=== PATIENT | female | born 1970 | race Two or more races ===

== ENCOUNTER 2017-07-05 22:10 | Inpatient (IN) | payer OTHER ==
[2017-07-05 22:34] LABS: ADD MAN DIFF? NO
[2017-07-05 22:36] LABS: WHITE BLOOD COUNT 10.7 10^3/ul (4.8-10.8)
[2017-07-05 22:36] LABS: BASOPHILS % 0.3 % (0.0-2.0); EOSINOPHILS # 0.2 10^3/ul (0.0-0.5); EOSINOPHILS % 1.7 % (0.0-7.0); HEMATOCRIT 43.7 % (37.0-47.0); HEMOGLOBIN 14.6 g/dl (12.0-16.0); LYMPHOCYTES # 3.8 10^3/ul (0.8-2.9); LYMPHOCYTES % 35.7 % (15.0-51.0); MEAN CORPUSCULAR HEMOGLOBIN 28.7 pg (29.0-33.0); MEAN CORPUSCULAR HGB CONC 33.4 g/dl (32.0-37.0); MEAN CORPUSCULAR VOLUME 85.9 fl (82.0-101.0); MEAN PLATELET VOLUME 9.8 fl (7.4-10.4); MONOCYTE # 0.4 10^3/ul (0.3-0.9); MONOCYTES % 4.1 % (0.0-11.0); NEUTROPHIL # 6.2 10^3/ul (1.6-7.5); NEUTROPHILS % 57.9 % (39.0-77.0); PLATELET COUNT 312 10^3/UL (140-415); RED BLOOD COUNT 5.09 10^6/ul (4.20-5.40); RED CELL DISTRIBUTION WIDTH 13.7 % (11.5-14.5)
[2017-07-05 22:48] LABS: HEMOGLOBIN A1C 5.8 % (0-5.9)
[2017-07-05 22:54] LABS: INR 0.92; PROTIME 12.4 Sec (11.9-14.9)
[2017-07-05 22:55] LABS: PARTIAL THROMBOPLASTIN TIME 31.8 Sec (25.0-35.0)
[2017-07-05 22:58] LABS: ALANINE AMINOTRANSFERASE 33 IU/L (13-69); ALBUMIN 4.6 g/dl (3.3-4.9); ALBUMIN/GLOBULIN RATIO 1.17; ALKALINE PHOSPHATASE 73 IU/L (42-121); ANION GAP 16 (8-16); ASPARTATE AMINO TRANSFERASE 26 IU/L (15-46); BILIRUBIN,INDIRECT 0.2 mg/dl (0-1.1); BILIRUBIN,TOTAL 0.2 mg/dl (0.2-1.3); BLOOD UREA NITROGEN 13 mg/dl (7-20); CALCIUM 9.5 mg/dl (8.4-10.2); CARBON DIOXIDE 29 mmol/L (21-31); CHLORIDE 103 mmol/L (97-110); CREATININE 1.09 mg/dl (0.44-1.00); GLUCOSE 129 mg/dl (70-220); POTASSIUM 3.6 mmol/L (3.5-5.1); SODIUM 144 mmol/L (135-144); TOTAL PROTEIN 8.5 g/dl (6.1-8.1)
[2017-07-05 23:10] LABS: TROPONIN-I < 0.012 ng/ml (0.00-0.12)
[2017-07-05] MEDS: LABETALOL HCL 20MG INJ IV (23:33)
[2017-07-06] MEDS ORDERED: NACL 0.9% 3 ML SYG IV (04:30)
[2017-07-06] MEDS ORDERED: ALBUTEROL/IPRATROPIUM (NEB) 3 ML AMP HHN (04:30)
[2017-07-06] MEDS ORDERED: DILTIAZEM-D5W 125MG/125ML DRIP 125 ML IV (04:30)
[2017-07-06 04:59] LABS: ADD MAN DIFF? NO; BASOPHIL # 0.1 10^3/ul (0.0-0.1); BASOPHILS % 0.5 % (0.0-2.0); EOSINOPHILS # 0.2 10^3/ul (0.0-0.5); EOSINOPHILS % 1.9 % (0.0-7.0); HEMATOCRIT 39.4 % (37.0-47.0); HEMOGLOBIN 13.4 g/dl (12.0-16.0); LYMPHOCYTES # 3.1 10^3/ul (0.8-2.9); LYMPHOCYTES % 29.2 % (15.0-51.0); MEAN CORPUSCULAR HEMOGLOBIN 28.9 pg (29.0-33.0); MEAN CORPUSCULAR VOLUME 84.9 fl (82.0-101.0); MEAN PLATELET VOLUME 10.2 fl (7.4-10.4); MONOCYTE # 0.5 10^3/ul (0.3-0.9); MONOCYTES % 4.5 % (0.0-11.0); NEUTROPHIL # 6.9 10^3/ul (1.6-7.5); NEUTROPHILS % 63.7 % (39.0-77.0); PLATELET COUNT 309 10^3/UL (140-415); RED BLOOD COUNT 4.64 10^6/ul (4.20-5.40)
[2017-07-06 04:59] LABS: WHITE BLOOD COUNT 10.8 10^3/ul (4.8-10.8)
[2017-07-06 05:20] LABS: ALANINE AMINOTRANSFERASE 28 IU/L (13-69); ALBUMIN 4.2 g/dl (3.3-4.9); ALBUMIN/GLOBULIN RATIO 1.02; ALKALINE PHOSPHATASE 55 IU/L (42-121); ANION GAP 15 (8-16); ASPARTATE AMINO TRANSFERASE 31 IU/L (15-46); BILIRUBIN,INDIRECT 0.3 mg/dl (0-1.1); BILIRUBIN,TOTAL 0.3 mg/dl (0.2-1.3); BLOOD UREA NITROGEN 12 mg/dl (7-20); CALCIUM 9.2 mg/dl (8.4-10.2); CARBON DIOXIDE 28 mmol/L (21-31); CHLORIDE 103 mmol/L (97-110); CHOL/HDL RATIO 5.1 RATIO; CHOLESTEROL 171 mg/dl (100-200); CREATININE 0.94 mg/dl (0.44-1.00); GLUCOSE 120 mg/dl (70-220); HDL CHOLESTEROL 33 mg/dl (34-88); LDL CHOLESTEROL,CALCULATED 88 mg/dl; MAGNESIUM 1.9 mg/dl (1.7-2.5); POTASSIUM 3.5 mmol/L (3.5-5.1); SODIUM 142 mmol/L (135-144); TOTAL PROTEIN 8.3 g/dl (6.1-8.1); TRIGLYCERIDES 250 mg/dl (0-149)
[2017-07-06] MEDS: hydrALAzine 20 MG INJ IV ×3 (06:13→20:08)
[2017-07-06 08:36] LABS: CREATINE KINASE 200 IU/L (23-200)
[2017-07-06 08:50] LABS: CK INDEX 0.5; CK-MB 1.08 ng/ml (0.0-2.4); TROPONIN-I 0.012 ng/ml (0.00-0.12)
[2017-07-06] MEDS: FERROUS SULFATE (EC) 325 MG TAB PO (09:00)
[2017-07-06] MEDS: ASPIRIN 81 MG TAB PO (09:16)
[2017-07-06] MEDS: HYDROCHLOROTHIAZIDE 25 MG TAB PO (09:16)
[2017-07-06 09:49] LABS: HEMOGLOBIN A1C 5.7 % (0-5.9)
[2017-07-06] MEDS: ACETAMINOPHEN 325 MG TAB PO (09:51)
[2017-07-06] MEDS: ONDANSETRON 4 MG INJ IV ×2 (10:56→20:04)
[2017-07-06 11:38] LABS: CREATINE KINASE 204 IU/L (23-200)
[2017-07-06 11:50] LABS: CK INDEX 0.5; CK-MB 0.92 ng/ml (0.0-2.4)
[2017-07-06 11:53] LABS: TROPONIN-I < 0.012 ng/ml (0.00-0.12)
[2017-07-06] MEDS: LOSARTAN 50 MG TAB PO (12:33)
[2017-07-06] MEDS: ATORVASTATIN 10 MG TAB PO (21:30)
[2017-07-06] MEDS: morphine 2 MG INJ IV (22:03)
[2017-07-06] MEDS ORDERED: hydrALAzine 20 MG INJ IV (22:30)
[2017-07-06] MEDS: METOCLOPRAMIDE 10 MG INJ IV (22:52)
[2017-07-07] MEDS ORDERED: METOCLOPRAMIDE 10 MG INJ IV
[2017-07-07 07:28] LABS: ADD MAN DIFF? NO
[2017-07-07 07:33] LABS: BASOPHILS % 0.2 % (0.0-2.0); EOSINOPHILS % 0.1 % (0.0-7.0); HEMATOCRIT 42.8 % (37.0-47.0); HEMOGLOBIN 14.8 g/dl (12.0-16.0); LYMPHOCYTES # 3.1 10^3/ul (0.8-2.9); LYMPHOCYTES % 16.5 % (15.0-51.0); MEAN CORPUSCULAR HGB CONC 34.6 g/dl (32.0-37.0); MEAN CORPUSCULAR VOLUME 83.8 fl (82.0-101.0); MONOCYTE # 0.8 10^3/ul (0.3-0.9); MONOCYTES % 4.4 % (0.0-11.0); NEUTROPHIL # 14.8 10^3/ul (1.6-7.5); NEUTROPHILS % 78.2 % (39.0-77.0); PLATELET COUNT 399 10^3/UL (140-415); RED BLOOD COUNT 5.11 10^6/ul (4.20-5.40); RED CELL DISTRIBUTION WIDTH 14.2 % (11.5-14.5)
[2017-07-07 07:33] LABS: WHITE BLOOD COUNT 18.9 10^3/ul (4.8-10.8)
[2017-07-07] MEDS: FERROUS SULFATE (EC) 325 MG TAB PO (09:00)
[2017-07-07 10:26] LABS: ANION GAP 17 (8-16); BLOOD UREA NITROGEN 19 mg/dl (7-20); CALCIUM 10.1 mg/dl (8.4-10.2); CARBON DIOXIDE 29 mmol/L (21-31); CHLORIDE 97 mmol/L (97-110); CREATININE 1.68 mg/dl (0.44-1.00); GLUCOSE 140 mg/dl (70-220); PHOSPHORUS 4.6 mg/dl (2.5-4.9); SODIUM 140 mmol/L (135-144)
[2017-07-07] MEDS: LOSARTAN 50 MG TAB PO (10:29)
[2017-07-07] MEDS: HYDROCHLOROTHIAZIDE 25 MG TAB PO (10:29)
[2017-07-07] MEDS: ASPIRIN 81 MG TAB PO (10:29)
[2017-07-07] MEDS: METOCLOPRAMIDE 10 MG INJ IV ×3 (10:31→20:22)
[2017-07-07] MEDS: ENOXAPARIN 40 MG/0.4 ML SYG SC (10:37)
[2017-07-07 10:40] LABS: POTASSIUM 2.9 mmol/L (3.5-5.1)
[2017-07-07] MEDS: morphine 2 MG INJ IV (10:42)
[2017-07-07 12:30] LABS: ADD MAN DIFF? NO
[2017-07-07 12:38] LABS: BASOPHILS % 0.1 % (0.0-2.0); EOSINOPHILS % 0.1 % (0.0-7.0); HEMATOCRIT 43.3 % (37.0-47.0); HEMOGLOBIN 14.7 g/dl (12.0-16.0); LYMPHOCYTES # 2.2 10^3/ul (0.8-2.9); LYMPHOCYTES % 13.7 % (15.0-51.0); MEAN CORPUSCULAR HEMOGLOBIN 28.4 pg (29.0-33.0); MEAN CORPUSCULAR HGB CONC 33.9 g/dl (32.0-37.0); MEAN CORPUSCULAR VOLUME 83.6 fl (82.0-101.0); MEAN PLATELET VOLUME 9.9 fl (7.4-10.4); MONOCYTE # 0.8 10^3/ul (0.3-0.9); MONOCYTES % 4.9 % (0.0-11.0); NEUTROPHIL # 12.9 10^3/ul (1.6-7.5); NEUTROPHILS % 80.8 % (39.0-77.0); PLATELET COUNT 361 10^3/UL (140-415); RED BLOOD COUNT 5.18 10^6/ul (4.20-5.40); RED CELL DISTRIBUTION WIDTH 14.1 % (11.5-14.5)
[2017-07-07] MEDS: POTASSIUM CHLORIDE (SR) 20 MEQ TAB PO ×2 (13:58→17:35)
[2017-07-07] MEDS: ATORVASTATIN 10 MG TAB PO (20:22)
[2017-07-07] MEDS: HYDROCODONE/APAP (10/325) TAB PO (20:24)
[2017-07-08] MEDS: FERROUS SULFATE (EC) 325 MG TAB PO (09:02)
[2017-07-08] MEDS: ASPIRIN 81 MG TAB PO (09:02)
[2017-07-08] MEDS: HYDROCHLOROTHIAZIDE 25 MG TAB PO (09:03)
[2017-07-08] MEDS: LOSARTAN 50 MG TAB PO (09:03)
[2017-07-08] MEDS: ENOXAPARIN 40 MG/0.4 ML SYG SC (09:04)
[2017-07-08 09:18] LABS: ADD MAN DIFF? NO
[2017-07-08 09:20] LABS: BASOPHIL # 0.1 10^3/ul (0.0-0.1); BASOPHILS % 0.4 % (0.0-2.0); EOSINOPHILS # 0.1 10^3/ul (0.0-0.5); EOSINOPHILS % 0.5 % (0.0-7.0); HEMATOCRIT 43.3 % (37.0-47.0); HEMOGLOBIN 14.5 g/dl (12.0-16.0); LYMPHOCYTES # 3.5 10^3/ul (0.8-2.9); MEAN CORPUSCULAR HEMOGLOBIN 28.6 pg (29.0-33.0); MEAN CORPUSCULAR HGB CONC 33.5 g/dl (32.0-37.0); MEAN CORPUSCULAR VOLUME 85.4 fl (82.0-101.0); MONOCYTE # 0.8 10^3/ul (0.3-0.9); MONOCYTES % 5.8 % (0.0-11.0); NEUTROPHIL # 8.5 10^3/ul (1.6-7.5); PLATELET COUNT 381 10^3/UL (140-415); RED BLOOD COUNT 5.07 10^6/ul (4.20-5.40); RED CELL DISTRIBUTION WIDTH 14.4 % (11.5-14.5)
[2017-07-08 09:20] LABS: WHITE BLOOD COUNT 12.9 10^3/ul (4.8-10.8)
[2017-07-08] MEDS: ACETAMINOPHEN 325 MG TAB PO ×2 (09:34→17:34)
[2017-07-08 09:51] LABS: ANION GAP 15 (8-16); BLOOD UREA NITROGEN 30 mg/dl (7-20); CALCIUM 9.7 mg/dl (8.4-10.2); CARBON DIOXIDE 25 mmol/L (21-31); CHLORIDE 100 mmol/L (97-110); CREATININE 1.74 mg/dl (0.44-1.00); GLUCOSE 123 mg/dl (70-220); POTASSIUM 3.4 mmol/L (3.5-5.1); SODIUM 137 mmol/L (135-144)
[2017-07-08] MEDS: SOD CHLORIDE 0.9% 1,000 ML IV (17:53)
[2017-07-08] MEDS: ATORVASTATIN 10 MG TAB PO (20:34)
[2017-07-08 20:54] LABS: POTASSIUM 3.4 mmol/L (3.5-5.1)
[2017-07-08] MEDS: POTASSIUM CHLORIDE (SR) 20 MEQ TAB PO (21:57)
[2017-07-08 23:07] LABS: ADD UMIC NO; UR ASCORBIC ACID NEGATIVE (NEGATIVE); UR BILIRUBIN (Dip) NEGATIVE (NEGATIVE); UR BLOOD (Dip) NEGATIVE (NEGATIVE); UR CLARITY CLEAR (CLEAR); UR COLOR STRAW (YELLOW); UR GLUCOSE (Dip) NEGATIVE (NEGATIVE); UR KETONES (Dip) NEGATIVE (NEGATIVE); UR LEUKOCYTE ESTERASE (Dip) NEGATIVE Leu/ul (NEGATIVE); UR NITRITE (Dip) NEGATIVE (NEGATIVE); UR SPECIFIC GRAVITY (Dip) 1.009 (1.003-1.030); UR TOTAL PROTEIN (Dip) NEGATIVE (NEGATIVE); UR UROBILINOGEN (Dip) NEGATIVE (NEGATIVE)
[2017-07-08 23:31] LABS: CREATININE,URINE RANDOM 55.06 mg/dl (20-320); CREATININE,URINE RANDOM 55.21 mg/dl (20-320)
[2017-07-08 23:31] LABS: SODIUM,URINE RANDOM 42 mmol/L (30-90)
[2017-07-09] MEDS: ACETAMINOPHEN 325 MG TAB PO (04:49)
[2017-07-09 08:38] LABS: ADD MAN DIFF? NO
[2017-07-09 08:57] LABS: ANION GAP 14 (8-16); BLOOD UREA NITROGEN 20 mg/dl (7-20); CALCIUM 9.3 mg/dl (8.4-10.2); CARBON DIOXIDE 28 mmol/L (21-31); CHLORIDE 102 mmol/L (97-110); CREATININE 1.11 mg/dl (0.44-1.00); GLUCOSE 113 mg/dl (70-220); MAGNESIUM 2.1 mg/dl (1.7-2.5); POTASSIUM 3.1 mmol/L (3.5-5.1); SODIUM 141 mmol/L (135-144)
[2017-07-09] MEDS: ASPIRIN 81 MG TAB PO ×2 (09:00→11:20)
[2017-07-09] MEDS: FERROUS SULFATE (EC) 325 MG TAB PO ×2 (09:00→11:20)
[2017-07-09 09:04] LABS: BASOPHIL # 0.1 10^3/ul (0.0-0.1); BASOPHILS % 0.5 % (0.0-2.0); EOSINOPHILS # 0.1 10^3/ul (0.0-0.5); EOSINOPHILS % 1.3 % (0.0-7.0); HEMATOCRIT 41.5 % (37.0-47.0); HEMOGLOBIN 14.1 g/dl (12.0-16.0); LYMPHOCYTES # 3.3 10^3/ul (0.8-2.9); MEAN CORPUSCULAR VOLUME 85.2 fl (82.0-101.0); MEAN PLATELET VOLUME 9.8 fl (7.4-10.4); MONOCYTE # 0.7 10^3/ul (0.3-0.9); MONOCYTES % 6.2 % (0.0-11.0); NEUTROPHIL # 6.2 10^3/ul (1.6-7.5); NEUTROPHILS % 59.7 % (39.0-77.0); PLATELET COUNT 306 10^3/UL (140-415); RED BLOOD COUNT 4.87 10^6/ul (4.20-5.40); RED CELL DISTRIBUTION WIDTH 13.7 % (11.5-14.5)
[2017-07-09 09:04] LABS: WHITE BLOOD COUNT 10.5 10^3/ul (4.8-10.8)
[2017-07-09] MEDS: POTASSIUM CHLORIDE (SR) 20 MEQ TAB PO ×3 (11:13→15:23)
[2017-07-09] MEDS: ENOXAPARIN 40 MG/0.4 ML SYG SC (11:19)
[2017-07-09] MEDS: SOD CHLORIDE 0.9% 1,000 ML IV ×2 (13:30→17:32)
[2017-07-09 13:59] LABS: POTASSIUM,URINE RANDOM 33.9 mmol/L (25-125)
[2017-07-09 14:00] LABS: SODIUM,URINE RANDOM 105 mmol/L (30-90)
[2017-07-09] MEDS: ATORVASTATIN 10 MG TAB PO (20:59)
[2017-07-09 21:22] LABS: ALDOSTERONE 5 ng/dL
[2017-07-10] MEDS: ACETAMINOPHEN 325 MG TAB PO ×2 (04:03→20:59)
[2017-07-10] MEDS: FERROUS SULFATE (EC) 325 MG TAB PO (08:20)
[2017-07-10] MEDS: ASPIRIN 81 MG TAB PO (08:20)
[2017-07-10] MEDS: ENOXAPARIN 40 MG/0.4 ML SYG SC (08:21)
[2017-07-10] MEDS: VALSARTAN 160 MG TAB PO (08:24)
[2017-07-10] MEDS: HYDROCHLOROTHIAZIDE 12.5 MG CAP PO (08:25)
[2017-07-10 09:06] LABS: ADD MAN DIFF? NO
[2017-07-10 09:10] LABS: WHITE BLOOD COUNT 8.8 10^3/ul (4.8-10.8)
[2017-07-10 09:10] LABS: BASOPHILS % 0.5 % (0.0-2.0); EOSINOPHILS # 0.2 10^3/ul (0.0-0.5); EOSINOPHILS % 1.9 % (0.0-7.0); HEMATOCRIT 37.8 % (37.0-47.0); HEMOGLOBIN 12.9 g/dl (12.0-16.0); LYMPHOCYTES # 2.5 10^3/ul (0.8-2.9); LYMPHOCYTES % 28.5 % (15.0-51.0); MEAN CORPUSCULAR HEMOGLOBIN 29.6 pg (29.0-33.0); MEAN CORPUSCULAR HGB CONC 34.1 g/dl (32.0-37.0); MEAN CORPUSCULAR VOLUME 86.7 fl (82.0-101.0); MEAN PLATELET VOLUME 9.9 fl (7.4-10.4); MONOCYTE # 0.5 10^3/ul (0.3-0.9); MONOCYTES % 5.7 % (0.0-11.0); NEUTROPHIL # 5.6 10^3/ul (1.6-7.5); NEUTROPHILS % 62.9 % (39.0-77.0); PLATELET COUNT 267 10^3/UL (140-415); RED BLOOD COUNT 4.36 10^6/ul (4.20-5.40); RED CELL DISTRIBUTION WIDTH 13.7 % (11.5-14.5)
[2017-07-10] MEDS: SPIRONOLACTONE 25 MG TAB PO (09:23)
[2017-07-10] MEDS ORDERED: POTASSIUM CHLORIDE (SR) 20 MEQ TAB PO (09:30)
[2017-07-10 09:45] LABS: ANION GAP 15 (8-16); BLOOD UREA NITROGEN 16 mg/dl (7-20); CARBON DIOXIDE 26 mmol/L (21-31); CHLORIDE 107 mmol/L (97-110); CREATININE 0.98 mg/dl (0.44-1.00); GLUCOSE 112 mg/dl (70-220); PHOSPHORUS 3.4 mg/dl (2.5-4.9); POTASSIUM 3.7 mmol/L (3.5-5.1); SODIUM 144 mmol/L (135-144)
[2017-07-10 10:05] LABS: MAGNESIUM 2.1 mg/dl (1.7-2.5)
[2017-07-10] MEDS: ATORVASTATIN 10 MG TAB PO (20:54)
[2017-07-11] MEDS: SPIRONOLACTONE 25 MG TAB PO (05:31)
[2017-07-11] MEDS: HYDROCHLOROTHIAZIDE 12.5 MG CAP PO (05:32)
[2017-07-11 06:19] LABS: ADD MAN DIFF? NO
[2017-07-11 06:29] LABS: BASOPHILS % 0.4 % (0.0-2.0); EOSINOPHILS # 0.2 10^3/ul (0.0-0.5); EOSINOPHILS % 2.5 % (0.0-7.0); HEMATOCRIT 36.8 % (37.0-47.0); HEMOGLOBIN 12.2 g/dl (12.0-16.0); LYMPHOCYTES # 2.7 10^3/ul (0.8-2.9); LYMPHOCYTES % 35.5 % (15.0-51.0); MEAN CORPUSCULAR HEMOGLOBIN 28.4 pg (29.0-33.0); MEAN CORPUSCULAR HGB CONC 33.2 g/dl (32.0-37.0); MEAN CORPUSCULAR VOLUME 85.6 fl (82.0-101.0); MEAN PLATELET VOLUME 9.8 fl (7.4-10.4); MONOCYTE # 0.5 10^3/ul (0.3-0.9); MONOCYTES % 6.2 % (0.0-11.0); NEUTROPHIL # 4.2 10^3/ul (1.6-7.5); NEUTROPHILS % 55.1 % (39.0-77.0); PLATELET COUNT 261 10^3/UL (140-415); RED CELL DISTRIBUTION WIDTH 13.2 % (11.5-14.5)
[2017-07-11 06:29] LABS: WHITE BLOOD COUNT 7.5 10^3/ul (4.8-10.8)
[2017-07-11 07:15] LABS: ANION GAP 17 (8-16); BLOOD UREA NITROGEN 13 mg/dl (7-20); CALCIUM 9.2 mg/dl (8.4-10.2); CARBON DIOXIDE 28 mmol/L (21-31); CHLORIDE 104 mmol/L (97-110); CREATININE 0.92 mg/dl (0.44-1.00); GLUCOSE 99 mg/dl (70-220); MAGNESIUM 1.8 mg/dl (1.7-2.5); POTASSIUM 3.6 mmol/L (3.5-5.1); SODIUM 145 mmol/L (135-144)
[2017-07-11] MEDS: VALSARTAN 160 MG TAB PO (08:42)
[2017-07-11] MEDS: ASPIRIN 81 MG TAB PO (08:46)
[2017-07-11] MEDS: FERROUS SULFATE (EC) 325 MG TAB PO (08:46)
[2017-07-11] MEDS: ENOXAPARIN 40 MG/0.4 ML SYG SC (09:00)
[2017-07-11 12:01] LABS: COLLECTION PERIOD 24 hrs; VOLUME 3900 ml/24hrs
[2017-07-11 12:07] LABS: SCRET 0.92 mg/dl (0.44-1.00)
[2017-07-11 12:31] LABS: CREATININE CLEARANCE 120.8 mls/min (84.0-162.0); CREATININE,URINE RANDOM 41.03 mg/dl (20-320)
[2017-07-11 21:06] LABS: RENIN, PLASMA 3.38 ng/mL/h (0.25-5.82)
== END 2017-07-11 13:11 | disposition home or self-care (01) | DRG 77 ==
LOC: MS4 07-06 01:44 → E/R 22:10
PROVIDERS: Internal Medicine
DX: I67.4 Hypertensive encephalopathy (principal); N17.0 Acute kidney failure with tubular necrosis; I16.0 Hypertensive urgency; R73.03 Prediabetes; G93.0 Cerebral cysts; Z86.718 Personal history of other venous thrombosis and embolism; R47.81 Slurred speech; R20.0 Anesthesia of skin; I27.20 Pulmonary hypertension, unspecified
CPT/HCPCS: 36415; 70450; 70551; 71010; 74185; 76775; 80048; 80053; 80061; 81003; 82088; 82382; 82540; 82550; 82553; 82570; 82575; 82962; 83036; 83735; 84100; 84132; 84133; 84155; 84244; 84300; 84443; 84484; 85025; 85610; 85730; 92610; 93005; 93306; 93880; 93976; 96374; 97163; 97166; 97535; 99291-25

== ENCOUNTER 2017-10-25 01:50 | Emergency (ER) | payer OTHER ==
[2017-10-25 02:59] LABS: ADD MAN DIFF? NO
[2017-10-25 03:02] LABS: WHITE BLOOD COUNT 9.3 10^3/ul (4.8-10.8)
[2017-10-25 03:02] LABS: BASOPHILS % 0.3 % (0.0-2.0); EOSINOPHILS # 0.1 10^3/ul (0.0-0.5); EOSINOPHILS % 1.1 % (0.0-7.0); HEMATOCRIT 41.2 % (37.0-47.0); HEMOGLOBIN 13.8 g/dl (12.0-16.0); LYMPHOCYTES # 2.6 10^3/ul (0.8-2.9); LYMPHOCYTES % 27.7 % (15.0-51.0); MEAN CORPUSCULAR HEMOGLOBIN 28.8 pg (29.0-33.0); MEAN CORPUSCULAR HGB CONC 33.5 g/dl (32.0-37.0); MEAN PLATELET VOLUME 9.9 fl (7.4-10.4); MONOCYTE # 0.3 10^3/ul (0.3-0.9); MONOCYTES % 3.5 % (0.0-11.0); NEUTROPHIL # 6.2 10^3/ul (1.6-7.5); NEUTROPHILS % 67.2 % (39.0-77.0); PLATELET COUNT 295 10^3/UL (140-415); RED BLOOD COUNT 4.79 10^6/ul (4.20-5.40)
[2017-10-25 03:23] LABS: ANION GAP 19 (8-16); BLOOD UREA NITROGEN 10 mg/dl (7-20); CALCIUM 9.9 mg/dl (8.4-10.2); CARBON DIOXIDE 26 mmol/L (21-31); CHLORIDE 106 mmol/L (97-110); CREATININE 0.97 mg/dl (0.44-1.00); GLUCOSE 103 mg/dl (70-220); POTASSIUM 3.6 mmol/L (3.5-5.1); SODIUM 147 mmol/L (135-144)
[2017-10-25] MEDS: ACETAMINOPHEN 325 MG TAB PO (03:30)
[2017-10-25 03:35] LABS: B-TYPE NATRIURETIC PEPTIDE 67 PG/ML (0-125)
[2017-10-25 03:39] LABS: TROPONIN-I < 0.012 ng/ml (0.00-0.12)
== END 2017-10-25 04:56 | disposition home or self-care (01) ==
LOC: E/R 01:50
DX: I10 Essential (primary) hypertension (principal); Z79.82 Long term (current) use of aspirin; Z87.891 Personal history of nicotine dependence
CPT/HCPCS: 36415; 71045; 80048; 83880; 84484; 85025; 93005; 99285-25

== ENCOUNTER 2017-12-19 22:54 | Emergency (ER) | payer SELFPAY, OTHER | END 2017-12-20 00:05 | disposition home or self-care (01) | LOC: E/R 22:54 | DX: I10 Essential (primary) hypertension (principal); I45.81 Long QT syndrome; J45.909 Unspecified asthma, uncomplicated; Z76.0 Encounter for issue of repeat prescription; Z79.82 Long term (current) use of aspirin | CPT/HCPCS: 93005; 99283-25 ==

== ENCOUNTER → 2018-01-12 | Outpatient (CLI) | payer BC ==
[2018-01-12 09:48] LABS: ADD MAN DIFF? NO
[2018-01-12 09:52] LABS: WHITE BLOOD COUNT 9.6 10^3/ul (4.8-10.8)
[2018-01-12 09:52] LABS: BASOPHIL # 0.1 10^3/ul (0.0-0.1); BASOPHILS % 0.5 % (0.0-2.0); EOSINOPHILS # 0.1 10^3/ul (0.0-0.5); HEMATOCRIT 40.4 % (37.0-47.0); HEMOGLOBIN 13.3 g/dl (12.0-16.0); LYMPHOCYTES # 2.9 10^3/ul (0.8-2.9); LYMPHOCYTES % 30.5 % (15.0-51.0); MEAN CORPUSCULAR HEMOGLOBIN 28.5 pg (29.0-33.0); MEAN CORPUSCULAR HGB CONC 32.9 g/dl (32.0-37.0); MEAN CORPUSCULAR VOLUME 86.5 fl (82.0-101.0); MEAN PLATELET VOLUME 9.6 fl (7.4-10.4); MONOCYTE # 0.5 10^3/ul (0.3-0.9); MONOCYTES % 5.2 % (0.0-11.0); NEUTROPHILS % 62.6 % (39.0-77.0); PLATELET COUNT 307 10^3/UL (140-415); RED BLOOD COUNT 4.67 10^6/ul (4.20-5.40); RED CELL DISTRIBUTION WIDTH 13.2 % (11.5-14.5)
[2018-01-12 10:15] LABS: ALANINE AMINOTRANSFERASE 23 IU/L (13-69); ALBUMIN 4.7 g/dl (3.3-4.9); ALBUMIN/GLOBULIN RATIO 1.34; ALKALINE PHOSPHATASE 53 IU/L (42-121); ANION GAP 18 (8-16); ASPARTATE AMINO TRANSFERASE 20 IU/L (15-46); BILIRUBIN,INDIRECT 0.3 mg/dl (0-1.1); BILIRUBIN,TOTAL 0.3 mg/dl (0.2-1.3); BLOOD UREA NITROGEN 11 mg/dl (7-20); CALCIUM 9.8 mg/dl (8.4-10.2); CARBON DIOXIDE 28 mmol/L (21-31); CHLORIDE 104 mmol/L (97-110); GLUCOSE 94 mg/dl (70-220); POTASSIUM 4.6 mmol/L (3.5-5.1); SODIUM 145 mmol/L (135-144); TOTAL PROTEIN 8.2 g/dl (6.1-8.1)
[2018-01-12 12:17] LABS: HDL CHOLESTEROL 28 mg/dl (34-88); TRIGLYCERIDES 120 mg/dl (0-149)
[2018-01-12 12:18] LABS: CHOL/HDL RATIO 5.7 RATIO; CHOLESTEROL 161 mg/dl (100-200); LDL CHOLESTEROL,CALCULATED 109 mg/dl
[2018-01-12 12:33] LABS: T4 (THYROXINE) 10.7 ug/dl (5.5-11.0)
== END | disposition home or self-care (01) ==
LOC: LAB 09:19
DX: I10 Essential (primary) hypertension (principal); E78.5 Hyperlipidemia, unspecified
CPT/HCPCS: 80053; 80061; 84436; 84443; 84480; 85025

== ENCOUNTER 2018-02-11 11:51 | Emergency (ER) | payer BC | END 2018-02-11 14:24 | disposition home or self-care (01) | LOC: FTE 11:51 | DX: S59.911A Unspecified injury of right forearm, initial encounter (principal); I10 Essential (primary) hypertension; W18.39XA Other fall on same level, initial encounter; Y92.9 Unspecified place or not applicable; Z79.82 Long term (current) use of aspirin | CPT/HCPCS: 73030; 73030-RT; 73060-RT; 73080-RT; 99283-25 ==